=== PATIENT | female | born 1970 | race Caucasian/White ===

== ENCOUNTER → 2016-09-29 | Outpatient (CLI) | payer OTHER ==
--- NOTE | 2016-09-29 15:52 | MA ---
Screening Digital Mammogram With Tomosynthesis Clinical Indications: Routine screening. Technique: Standard digital cephalocaudal and tomosynthesis mediolateral oblique projections are obt ained. The digital images were processed by the [employer] computer aided detection system. Comparison: May 2015, July 2011 and August 2010 Breast density: B; There are scattered fibroglandular densities. Findings: CAD was reviewed. There is a small cluster of microcalcifications beneath the lower right a reola that is associated with a nodular density. The remainder the right and left breast are stable. Impression: Microcalcification cluster beneath the right nipple possibly indicative of a intraductal papilloma. Recommendation: Magnification diagnostic mammography and ultrasound for further evaluation. BI-RADS 0: Needs additional imaging evaluation, right breast. Please fax a written or electronic order for a right breast diagnostic mammogram and ultrasound to . [facility] will send a result letter to the patient. Negative mammography should not preclude additional workup of a clinically suspicious finding. The patient's information is entered into a reminder system with a target due date for her next mammo gram.
== END ==
LOC: FIMAGING 15:15
DX: Z12.31 Encounter for screening mammogram for malignant neoplasm of breast (principal)
CPT/HCPCS: G0202

== ENCOUNTER → 2016-10-06 | Outpatient (CLI) | payer OTHER ==
--- NOTE | 2016-10-06 11:06 | MA ---
Diagnostic Digital Mammogram Right Breast Clinical Indications: Follow up developing microcalcifications right breast. Technique: Magnification views were obtained of the right breast in CC and 90 degree lateral projecti ons as well as a full 90 degree lateral view. [email or web address]. Comparison: September 29, 2016; June 07, 2015; August 14, 2011. Breast density: B; There are scattered areas of fibroglandular density. Findings: CAD was reviewed. Microcalcifications are once again seen inferomedial retroareolar location right breast associated wi th a smooth oval nodule. These have developed. These do not appear to layer in the 90 degree lateral view. No additional clusters of microcalcifications are identified. No additional nodules are seen. Impression: 1. Development of microcalcifications with associated smooth nodule inferomedial retroareolar locatio n right breast. Subsequent ultrasound was performed for further characterization. BI-RADS 0
--- NOTE | 2016-10-06 12:07 | US ---
Ultrasound right breast History: Developing microcalcifications with subtle nodule lower inner retroareolar right breast. Findings: Ultrasound right retroareolar location 4 clock position confirms subtle retroareolar duct w ith possible soft tissue component an echogenic microcalcifications that corresponds in location and appearance the finding seen at mammography. There is no associated internal color flow enhancement. T his area measures 7 x 3 x 5 mm. There are some fluid-filled ducts in the retroareolar location as wel l. No additional possible masses identified. Impression: 1. Hypoechoic subtle mildly suspicious lesion that appears to be within retroareolar duct 4 o'clock p osition right breast with echogenic microcalcifications that corresponds to mammographic abnormality. After discussing in length the option of close imaging followup versus biopsy, it was elected to con process development chemist ultrasound-guided needle core biopsy for definitive diagnosis. BI-RADS 4 A message was left at the office of Dr. Spohia Slater regarding this report. Please note that a written order for ultrasound guided breast biopsy must be faxed to the [facility] at fax number: [phone].
== END ==
LOC: FIMAGING 10:12
PROVIDERS: ATTEND Obstetrics & Gynecology
DX: Z12.39 Encounter for other screening for malignant neoplasm of breast (principal); R92.0 Mammographic microcalcification found on diagnostic imaging of breast
CPT/HCPCS: G0206

== ENCOUNTER → 2016-10-18 | Outpatient (CLI) | payer OTHER ==
--- NOTE | 2016-10-18 16:02 | MA ---
1. Diagnostic Digital Right Mammogram History: Post retroareolar biopsy for an intraductal nodule with microcalcifications. Comparison: October 06. Technique: 2 views of the right breast. Findings: The cervix clip is in excellent condition beneath the inner right areola. There is no signi ficant postprocedural hematoma. The previously present microcalcifications are no longer identified.. Impression: Excellent postprocedural mammogram.. Recommendation: Assuming a benign diagnosis, then recommend 6 month follow-up right mammogram to esta blish a new baseline. 2. Specimen Radiograph History: Evaluate for microcalcification within the ultrasound-guided biopsy Findings: Multiple microcalcifications are present in the biopsy specimen. Impression: Successful sampling of the target lesion directly beneath the inner right areola.
--- NOTE | 2016-10-18 16:46 | US ---
Vacuum-Assisted Ultrasound-Guided Core Biopsy Right Breast History: Intraductal nodule with microcalcifications behind the inner right areola Technique: Following informed consent, the nodule directly behind the right inner areola breast was localized from an inner approach. The skin was marked and then prepped and draped in sterile fashion. Following local anesthesia with 1% lidocaine, lidocaine (without epinephrine) was injected deeper wi thin the breast tissue. A small skin nguyen was placed on the skin surface, through which the 12-gauge [employer]s vacuum-assisted core biopsy needle was advanced with ultrasound guidance to the superior jamila n of the nodule. A few core biopsy samples were obtained through the nodule. A specimen radiograph wa s then performed confirming microcalcifications. A Suros titanium clip was then placed in the biopsy bed. Marcaine was then injected at the biopsy site for prolonged analgesia. Hemostasis was obtained, a sterile pressure dressing was applied and the patient sent for a postprocedural mammogram to docume nt clip placement and to observe for postprocedural hematoma formation. She was then discharged witho hi complication, with instructions to call us with any thoughts, complications or concerns. Impression: 1. Successful ultrasound-guided core biopsy of retroareolar nodule right breast. 2. Successful deployment of Suros titanium clip positioned immediately adjacent to the biopsy site. Specimen radiograph: Multiple microcalcifications are present in the specimen.
== END ==
LOC: FIMAGING 14:13
PROVIDERS: ATTEND Radiology Diagnostic Radiology
PROC: 0HBT3ZX Excision of Right Breast, Percutaneous Approach, Diagnostic (ICD-10-PCS; principal; 2016-10-18)
DX: D24.1 Benign neoplasm of right breast (principal)
CPT/HCPCS: G0206

== ENCOUNTER → 2016-11-10 | Outpatient (CLI) | payer OTHER | LOC: FIMAGING 07:18 | PROVIDERS: ATTEND Surgery | PROC: 0HHT31Z Insertion of Radioactive Element into Right Breast, Percutaneous Approach (ICD-10-PCS; principal; 2016-11-10) | DX: D24.9 Benign neoplasm of unspecified breast (principal) ==

== ENCOUNTER → 2017-11-13 | Outpatient (CLI) | payer OTHER | LOC: FIMAGING 12:21 | PROVIDERS: ATTEND Surgery | DX: Z12.31 Encounter for screening mammogram for malignant neoplasm of breast (principal) ==

== ENCOUNTER → 2018-11-14 | Outpatient (CLI) | payer OTHER | LOC: FIMAGING 13:56 | PROVIDERS: ATTEND Surgery | DX: Z12.31 Encounter for screening mammogram for malignant neoplasm of breast (principal); Z98.890 Other specified postprocedural states ==